=== PATIENT | female | born 1945 ===

== ENCOUNTER 2018-09-02 14:30 | Inpatient (IN) | payer OTHER ==
[~2018-09-02] VITALS: Ht 157.5 cm; Wt 60.8 kg
[2018-09-03] MEDS ORDERED: FOLIC ACID1 MG PO (09:45)
[2018-09-03] MEDS ORDERED: LEVO-T25 MCG PO (09:45)
[2018-09-03] MEDS ORDERED: FOLTX TABLET1 EACH PO (09:45)
[2018-09-03] MEDS ORDERED: MAGNESIUM400 MG PO (09:46)
== END 2018-09-09 10:53 | disposition home or self-care (01) | DRG 330 ==
LOC: O/R 09-06 05:48 → SURH 09-06 05:48 → EDBD 09-06 14:30 → SURH 09-06 14:30
PROVIDERS: ADMIT Colon & Rectal Surgery
PROC: 0DTP4ZZ Resection of Rectum, Percutaneous Endoscopic Approach (ICD-10-PCS; 2018-09-06)
PROC: 0DJD8ZZ Inspection of Lower Intestinal Tract, Via Natural or Artificial Opening Endoscopic (ICD-10-PCS; 2018-09-06)
PROC: C51DYZZ Planar Nuclear Medicine Imaging of Bilateral Lower Extremity Veins using Other Radionuclide (ICD-10-PCS; 2018-09-06)
PROC: 0DQP4ZZ Repair Rectum, Percutaneous Endoscopic Approach (ICD-10-PCS; principal; 2018-09-06 07:00)
PROC: 4A033R1 Measurement of Arterial Saturation, Peripheral, Percutaneous Approach (ICD-10-PCS; 2018-09-08)
DX: K57.32 Diverticulitis of large intestine without perforation or abscess without bleeding (principal); I82.813 Embolism and thrombosis of superficial veins of lower extremities, bilateral; J90 Pleural effusion, not elsewhere classified; J98.11 Atelectasis; K62.3 Rectal prolapse; K57.30 Diverticulosis of large intestine without perforation or abscess without bleeding; E03.8 Other specified hypothyroidism; Z79.01 Long term (current) use of anticoagulants; R15.9 Full incontinence of feces

== ENCOUNTER 2020-11-17 08:14 | Day surgery (SDC) | payer OTHER ==
[~2020-11-17 08:14] MED LIST: FOLIC ACID1 MG PO; FOLTX TABLET1 EACH PO; LEVO-T25 MCG PO; MAGNESIUM400 MG PO
== END 2020-11-17 14:00 | disposition home or self-care (01) ==
LOC: AMB-ENDOS 08:14
PROVIDERS: ATTEND Colon & Rectal Surgery
DX: K62.89 Other specified diseases of anus and rectum (principal); K64.8 Other hemorrhoids; Z20.822 Contact with and (suspected) exposure to COVID-19; Z12.11 Encounter for screening for malignant neoplasm of colon